=== PATIENT | male | born 1985 | race African-American/Black ===

== ENCOUNTER 2017-07-18 15:47 | Emergency (ER) | payer BC ==
[~2017-07-18] VITALS: Ht 175.3 cm; Wt 99.8 kg
[~2017-07-18 15:47] MED LIST: CORTISPORIN OTI10 M2 OTIC; PREDNISONE 20 M20 MG PO; PREDNISONE50 MG PO; TRILEPTAL300 MG PO; VENTOLIN HFA 1818 GM INH
[2017-07-18] MEDS ORDERED: VENTOLIN HFA 1818 GM INH (16:52)
[2017-07-18] MEDS ORDERED: PREDNISONE50 MG PO (16:52)
[2017-07-18] MEDS ORDERED: ALBUTEROL2.5 MG/31 INH (16:52)
== END 2017-07-18 17:29 | disposition home or self-care (01) ==
LOC: ER 15:47
DX: J45.901 Unspecified asthma with (acute) exacerbation (principal); F41.9 Anxiety disorder, unspecified; F17.210 Nicotine dependence, cigarettes, uncomplicated; Z88.1 Allergy status to other antibiotic agents; Z88.6 Allergy status to analgesic agent; F10.99 Alcohol use, unspecified with unspecified alcohol-induced disorder

== ENCOUNTER 2018-04-04 17:42 | Emergency (ER) | payer BC ==
[~2018-04-04] VITALS: Ht 175.3 cm; Wt 99.8 kg
[~2018-04-04 17:42] MED LIST changes: +ALBUTEROL2.5 MG/31 INH
== END 2018-04-04 19:30 | disposition home or self-care (01) ==
LOC: ER 17:42
DX: J03.90 Acute tonsillitis, unspecified (principal); J45.909 Unspecified asthma, uncomplicated; F41.9 Anxiety disorder, unspecified; F17.210 Nicotine dependence, cigarettes, uncomplicated; Z88.1 Allergy status to other antibiotic agents; Z88.6 Allergy status to analgesic agent

== ENCOUNTER 2019-11-03 19:01 | Emergency (ER) | payer BC ==
[~2019-11-03] VITALS: Ht 177.8 cm; Wt 104.3 kg
[2019-11-03 21:22] LABS: ABSOLUTE NEUTROPHILS 3.2 thou/uL (1.4-8.2); BASOPHILS 0.5 % (0.0-2.0); EOSINOPHILS 6.4 % (0.0-3.0); HEMATOCRIT 44.2 % (42.0-52.0); HEMOGLOBIN 14.4 gm/dL (14.0-18.0); LYMPHOCYTES 47.5 % (24.0-44.0); MCH 27.7 pg (26.0-34.0); MCHC 32.6 g/dL (28.0-37.0); MCV 84.9 fL (80.0-100.0); MONOCYTES 6.3 % (1.0-8.0); PLATELET COUNT 187 thou/uL (150-400); POLYS 39.3 % (36.0-66.0); RDW 13.8 % (10.5-14.5); WBC 8.1 thou/uL (4.0-11.0)
[2019-11-03 21:49] LABS: CALCIUM 8.9 mg/dL (8.5-10.1); CREATININE 1.3 mg/dL (0.7-1.3); POTASSIUM 3.7 mmol/L (3.5-5.1)
[2019-11-03 22:02] VITALS: BP 131/84
== END 2019-11-03 22:19 | disposition home or self-care (01) ==
LOC: ER 19:01
PROVIDERS: Nurse Practitioner
DX: G44.209 Tension-type headache, unspecified, not intractable (principal); J45.909 Unspecified asthma, uncomplicated; F41.9 Anxiety disorder, unspecified; F17.210 Nicotine dependence, cigarettes, uncomplicated; Z88.6 Allergy status to analgesic agent

== ENCOUNTER 2021-05-11 17:45 | Emergency (ER) | payer BC ==
[~2021-05-11] VITALS: Ht 177.8 cm; Wt 120.2 kg
[2021-05-11 18:14] LABS: ABSOLUTE NEUTROPHILS 3.3 thou/uL (1.4-8.2); BASOPHILS 0.6 % (0.0-2.0); EOSINOPHILS 4.6 % (0.0-3.0); HEMATOCRIT 40.8 % (42.0-52.0); HEMOGLOBIN 13.4 gm/dL (14.0-18.0); LYMPHOCYTES 44.1 % (24.0-44.0); MCH 27.5 pg (26.0-34.0); MCHC 32.9 g/dL (28.0-37.0); MCV 83.7 fL (80.0-100.0); MONOCYTES 6.5 % (1.0-8.0); PLATELET COUNT 238 thou/uL (150-400); POLYS 44.2 % (36.0-66.0); RBC 4.88 mil/uL (4.50-6.00); RDW 13.9 % (10.5-14.5); WBC 7.4 thou/uL (4.0-11.0)
[2021-05-11 18:23] LABS: ANION GAP 7 mmol/L (7-16); BUN 14 mg/dL (7-18); CALCIUM 8.8 mg/dL (8.5-10.1); CHLORIDE 107 mmol/L (98-107); CO2 28 mmol/L (21-32); CREATININE 1.4 mg/dL (0.7-1.3); GLUCOSE 98 mg/dL (74-106); POTASSIUM 3.7 mmol/L (3.5-5.1); SODIUM 142 mmol/L (136-145)
[2021-05-11 18:33] LABS: ALBUMIN 3.7 g/dL (3.4-5.0); LIPASE 151 U/L (73-393); SGOT 17 U/L (15-37); SGPT 21 U/L (30-65); TOTAL BILIRUBIN 0.3 mg/dL (0.2-1.0); TOTAL PROTEIN 7.4 g/dL (6.4-8.2); TROPONIN-I <0.06 ng/mL (<0.06)
[2021-05-11 21:47] VITALS: BP 119/74
--- NOTE | 2021-05-12 07:18 | EKG ---
[address] [employer] [place] [address] ELECTROCARDIOGRAM REPORT Name: KENDRA HURT Room #: [facility]#: [id number] Admission: 05/11/21 Attend Phys: Discharge: 05/11/21 Date of : 89 Report #: [id number] [facility] ED Test Date: 2021-05-11 Test Time: 17:45:14 Pat Name: KENDRA HURT Department: Room: Gender: Civil Engineer'S Aide: : 1985 Requested By: Edvin Cisneros Order Number: [id number] MD: Martin Jones Measurements Intervals [place] Rate: 86 P: 56 [place]: 134 QRS: 32 QRSD: 79 T: 26 QT: 325 QTc: 389 Interpretive Statements Sinus rhythm Compared to ECG 07/01/2016 00:48:42 No significant changes Electronically Signed On 05-12-2021 7:18:10 CDT by Martin Jones [email or web address] <ELECTRONICALLY SIGNED> By: Martin Jones MD, [facility] 05/12/21 0718 1745 1745 Martin Jones MD, FACC /EPI
== END 2021-05-11 21:47 | disposition home or self-care (01) ==
LOC: ER 17:45
PROVIDERS: Emergency Medicine
DX: M94.0 Chondrocostal junction syndrome [Tietze] (principal); J45.909 Unspecified asthma, uncomplicated; F17.210 Nicotine dependence, cigarettes, uncomplicated; Z88.6 Allergy status to analgesic agent

== ENCOUNTER → 2021-05-24 | Outpatient (CLI) | payer BC | LOC: SJCVCIMAG 08:45 | PROVIDERS: ATTEND Internal Medicine Cardiovascular Disease | DX: R07.89 Other chest pain (principal) ==